=== PATIENT | female | born 1975 | race Caucasian/White ===

== ENCOUNTER 2016-11-19 14:16 | Emergency (ER) | payer OTHER | END 2016-11-19 17:45 | disposition home or self-care (01) | LOC: ER 14:16 | DX: H66.93 Otitis media, unspecified, bilateral (principal); H92.01 Otalgia, right ear; Z88.0 Allergy status to penicillin; Z79.899 Other long term (current) drug therapy; F17.210 Nicotine dependence, cigarettes, uncomplicated | CPT/HCPCS: 99282 ==